=== PATIENT | female | born 1960 | race Caucasian/White ===

== ENCOUNTER 2016-07-27 09:01 | Inpatient (IN) | payer OTHER ==
[2016-07-27] MEDS ORDERED: LACTATED RINGERS 1,000 ML IV ONE ×4 (09:35→16:00)
[2016-07-27] MEDS ORDERED: ERTAPENEM 1 GM in SODIUM CHLORIDE 0.9% MINIBAG 100 ML IV ONE ×2 (10:00→17:30)
[2016-07-27] MEDS ORDERED: MIDAZOLAM 2 MG/2 ML VIAL ONE (12:29)
[2016-07-27] MEDS ORDERED: DEXAMETHASONE 4 MG/ML VIAL IVP ONE (13:30)
[2016-07-27] MEDS ORDERED: PHENYLEPHRINE 50 MG/5 ML VIAL IV ONE (13:30)
[2016-07-27] MEDS ORDERED: fentaNYL 250 MCG/5 ML VIAL IVP ONE (13:30)
[2016-07-27] MEDS ORDERED: SUCCINYLCHOLINE 200 MG/10 ML VIAL IVP ONE (13:30)
[2016-07-27] MEDS ORDERED: PROPOFOL 200 MG/20 ML VIAL IVP ONE (13:30)
[2016-07-27] MEDS ORDERED: ePHEDrine 50 MG/ML AMP IVP ONE (13:30)
[2016-07-27] MEDS ORDERED: ROPIVACAINE 0.5% PF 20 ML AMPULE EP ONE (13:30)
[2016-07-27] MEDS ORDERED: MIDAZOLAM 2 MG/2 ML VIAL IVP ONE (13:30)
[2016-07-27] MEDS ORDERED: LIDOCAINE-MPF 2% 5 ML VIAL IM ONE (13:30)
[2016-07-27] MEDS ORDERED: ONDANSETRON 4 MG/2 ML VIAL IVP ONE (13:30)
[2016-07-27] MEDS ORDERED: ROCURONIUM 50 MG/5 ML VIAL IVP ONE (13:30)
[2016-07-27] MEDS ORDERED: NEOSTIGMINE 1 MG/1 ML 10 ML MDV IVP ONE (13:30)
[2016-07-27] MEDS ORDERED: GLYCOPYRROLATE 1 MG/5 ML VIAL IVP ONE (13:30)
[2016-07-27] MEDS ORDERED: SUFENTA/BUPIV 0.4 MCG/0.0625% EPIDURAL 150 ML EP PRN (13:46)
[2016-07-27] MEDS ORDERED: NALBUPHINE 20 MG/ML AMP IVP PRN ×2 (13:46→17:13)
[2016-07-27] MEDS ORDERED: diphenhydrAMINE INJ 50 MG/ML VIAL IVP PRN (13:46)
[2016-07-27] MEDS ORDERED: ONDANSETRON 4 MG/2 ML VIAL IVP PRN ×3 (13:46→17:13)
[2016-07-27] MEDS ORDERED: SUFENTA/BUPIV 0.4 MCG/0.0625% 150 ML EP ONE (14:21)
[2016-07-27] MEDS ORDERED: MEPERIDINE 50 MG/ML SYRINGE ONE (16:50)
[2016-07-27] MEDS ORDERED: GABAPENTIN 100 MG CAPSULE PO PRN (17:13)
[2016-07-27] MEDS: NS W/20 MEQ KCL 1,000 ML IV SCH (17:49)
[2016-07-27] MEDS: FAMOTIDINE 20 MG/50 ML 50 ML IV SCH (20:31)
[2016-07-27] MEDS: SODIUM CHLORIDE FLUSH 0.9% 10 ML SYRINGE IVP SCH (20:31)
[2016-07-27] MEDS ORDERED: PHENOL THROAT SPRAY 177 ML MM PRN (20:42)
[2016-07-27] MEDS: SUFENTA/BUPIV 0.4 MCG/0.0625% EPIDURAL 150 ML EP PRN (23:48)
[2016-07-28] MEDS: KETOROLAC 15 MG/ML VIAL IVP PRN ×3 (00:13→23:22)
[2016-07-28] MEDS: diphenhydrAMINE INJ 50 MG/ML VIAL IVP PRN ×3 (00:23→20:19)
[2016-07-28] MEDS: SODIUM CHLORIDE FLUSH 0.9% 10 ML SYRINGE IVP SCH ×4 (01:35→20:26)
[2016-07-28] MEDS: NS W/20 MEQ KCL 1,000 ML IV SCH ×3 (05:39→17:20)
[2016-07-28] MEDS: SUFENTA/BUPIV 0.4 MCG/0.0625% EPIDURAL 150 ML EP PRN ×4 (05:42→22:57)
[2016-07-28] MEDS: amLODIPine 5 MG TABLET PO SCH (08:48)
[2016-07-28] MEDS: FAMOTIDINE 20 MG/50 ML 50 ML IV SCH ×2 (08:48→20:18)
[2016-07-28] MEDS ORDERED: NS W/20 MEQ KCL 1,000 ML IV SCH (10:42)
[2016-07-28] MEDS: LORazepam 2 MG/ML SYRINGE IVP PRN (11:59)
[2016-07-28] MEDS: SODIUM CHLORIDE FLUSH 0.9% 10 ML SYRINGE IVP PRN ×2 (20:19→23:23)
[2016-07-29] MEDS: diphenhydrAMINE INJ 50 MG/ML VIAL IVP PRN ×3 (04:18→20:24)
[2016-07-29] MEDS ORDERED: SUFENTA/BUPIV 0.4 MCG/0.0625% 150 ML EP ONE (04:24)
[2016-07-29] MEDS: SUFENTA/BUPIV 0.4 MCG/0.0625% EPIDURAL 150 ML EP PRN ×4 (04:32→20:20)
[2016-07-29] MEDS: NS W/20 MEQ KCL 1,000 ML IV SCH ×3 (06:59→20:39)
[2016-07-29] MEDS: SODIUM CHLORIDE FLUSH 0.9% 10 ML SYRINGE IVP SCH ×3 (07:57→20:24)
[2016-07-29] MEDS: FAMOTIDINE 20 MG/50 ML 50 ML IV SCH ×2 (07:57→20:39)
[2016-07-29] MEDS: amLODIPine 5 MG TABLET PO SCH (07:57)
[2016-07-29] MEDS: ENOXAPARIN 40 MG/0.4 ML SYRINGE SUBQ SCH (08:30)
[2016-07-30] MEDS: SUFENTA/BUPIV 0.4 MCG/0.0625% EPIDURAL 150 ML EP PRN ×5 (00:52→21:16)
[2016-07-30] MEDS: diphenhydrAMINE INJ 50 MG/ML VIAL IVP PRN ×3 (02:45→16:50)
[2016-07-30] MEDS: SODIUM CHLORIDE FLUSH 0.9% 10 ML SYRINGE IVP SCH ×3 (06:40→21:19)
[2016-07-30] MEDS: FAMOTIDINE 20 MG/50 ML 50 ML IV SCH ×2 (07:56→21:15)
[2016-07-30] MEDS: amLODIPine 5 MG TABLET PO SCH (07:56)
[2016-07-30] MEDS: ENOXAPARIN 40 MG/0.4 ML SYRINGE SUBQ SCH (09:12)
[2016-07-30] MEDS: NS W/20 MEQ KCL 1,000 ML IV SCH ×2 (14:31→22:56)
[2016-07-30] MEDS: SODIUM CHLORIDE FLUSH 0.9% 10 ML SYRINGE IVP PRN ×3 (16:51→21:18)
[2016-07-30] MEDS: KETOROLAC 15 MG/ML VIAL IVP PRN (17:17)
[2016-07-30] MEDS: LORazepam 2 MG/ML SYRINGE IVP PRN (21:15)
[2016-07-31] MEDS: SUFENTA/BUPIV 0.4 MCG/0.0625% EPIDURAL 150 ML EP PRN (02:26)
[2016-07-31] MEDS: diphenhydrAMINE INJ 50 MG/ML VIAL IVP PRN ×4 (02:35→23:39)
[2016-07-31] MEDS: SODIUM CHLORIDE FLUSH 0.9% 10 ML SYRINGE IVP SCH ×3 (06:40→18:16)
[2016-07-31] MEDS: NS W/20 MEQ KCL 1,000 ML IV SCH ×2 (06:50→17:42)
[2016-07-31] MEDS: ENOXAPARIN 40 MG/0.4 ML SYRINGE SUBQ SCH (07:14)
[2016-07-31] MEDS: FAMOTIDINE 20 MG/50 ML 50 ML IV SCH (09:16)
[2016-07-31] MEDS: amLODIPine 5 MG TABLET PO SCH (09:17)
[2016-07-31] MEDS: HYDROmorphone 1 MG/ML SYRINGE IVP PRN ×2 (10:49→18:16)
[2016-07-31] MEDS: LORazepam 2 MG/ML SYRINGE IVP PRN (10:53)
[2016-07-31] MEDS: HYDROcod/ACETAM 5/325 MG TABLET PO PRN ×3 (14:08→23:39)
[2016-07-31] MEDS: SODIUM CHLORIDE FLUSH 0.9% 10 ML SYRINGE IVP PRN (18:22)
[2016-07-31] MEDS: LORazepam 0.5 MG TABLET PO PRN (19:19)
[2016-08-01] MEDS: NS W/20 MEQ KCL 1,000 ML IV SCH (01:09)
[2016-08-01] MEDS: SODIUM CHLORIDE FLUSH 0.9% 10 ML SYRINGE IVP SCH ×2 (01:10→13:25)
[2016-08-01] MEDS: LORazepam 0.5 MG TABLET PO PRN ×2 (03:09→11:00)
[2016-08-01] MEDS: HYDROcod/ACETAM 5/325 MG TABLET PO PRN ×4 (03:09→15:30)
[2016-08-01] MEDS: diphenhydrAMINE INJ 50 MG/ML VIAL IVP PRN ×2 (05:57→15:01)
[2016-08-01] MEDS: amLODIPine 5 MG TABLET PO SCH (08:23)
== END 2016-08-01 17:21 | disposition home or self-care (01) | DRG 331 ==
PROC: 0DBM0ZZ Excision of Descending Colon, Open Approach (ICD-10-PCS; principal; 2016-07-27 10:30)
DX: Z43.3 Encounter for attention to colostomy (principal); I10 Essential (primary) hypertension; K21.9 Gastro-esophageal reflux disease without esophagitis; D12.4 Benign neoplasm of descending colon; K57.30 Diverticulosis of large intestine without perforation or abscess without bleeding; Z87.891 Personal history of nicotine dependence

== ENCOUNTER 2019-07-03 01:07 | Emergency (ER) | payer OTHER ==
[2019-07-03 01:14] VITALS: BP 165/95
[2019-07-03] MEDS ORDERED: HYDROmorphone 1 MG/ML CARPUJECT IVP STA ×2 (01:30→02:36)
[2019-07-03] MEDS ORDERED: ONDANSETRON 4 MG/2 ML VIAL IVP STA (01:30)
--- NOTE | 2019-07-03 01:32 | ED Physician Documentation ---
PD HPI UPPER EXT INJURY - Stated complaint Stated Complaint: LEFT ARM INJURY, GLF - Chief complaint Chief Complaint: Trauma Ext - History obtained from History obtained from: Patient, Family - History of Present Illness Location: Left, Arm Type of injury: Fall Where injury occurred: Home Timing - onset: How many hours ago (2) Timing - duration: Hours (2) Timing - details: Abrupt onset, Still present Improved by: Rest, Immobilization Worsened by: Moving, Palpating Associated symptoms: Swelling. No: Weakness, Numbness, Tingling Contributing factors: No: Anticoagulated Similar symptoms before: Has not had sx before Recently seen: Not recently seen - Additonal information Additional information: 59-year-old female was outside walking her dog when she tripped over some things in her yard and fell onto her left arm. She has an obvious fracture she was able to get into her car and drive herself up to the hospital favoring her left arm. She has deformity and swelling. PD PAST MEDICAL HISTORY - Past Medical History Cardiovascular: Hypertension Respiratory: None Endocrine/Autoimmune: None GI: GERD, Other CHIEF COUNSEL: None : Kidney stones, Other HEENT: None Psych: Anxiety Musculoskeletal: None Derm: None - Past Surgical History Past Surgical History: No General: Bowel surgery /CHIEF COUNSEL: Tubal ligation, Oophrectomy - Present Medications Home Medications: Ambulatory Orders Medication Instructions Recorded Confirmed Gabapentin 100 mg PO DAILY PM PRN 05/24/16 07/27/16 LORazepam [Lorazepam] 0.5 mg PO DAILY PRN 05/24/16 07/27/16 amLODIPine [Norvasc] 5 mg PO DAILY 05/24/16 07/27/16 HYDROcod/ACETAM 5/325 [[place] 5/325] 1 - 2 tab PO Q4HR PRN #40 tablet 08/01/16 Hydrocodone/Acetaminophen 1 - 2 each PO Q6H PRN #14 tablet 07/03/19 [Hydrocodon-Acetaminophen 5-325] - Allergies Allergies/Adverse Reactions: Allergies Allergy/AdvReac Type Severity Reaction Status Date / Time No Known Drug Allergies Allergy Verified 07/03/19 01:14 - Social History Does the pt smoke?: No Smoking Status: Former smoker Does the pt drink ETOH?: No Does the pt have substance abuse?: No - Immunizations Immunizations are current?: Yes PD ED PE NORMAL - Vitals Vital signs reviewed: Yes (hypertensive ) - General General: Alert and oriented X 3, No acute distress, Well developed/nourished - HEENT HEENT: Atraumatic, PERRL, EOMI - Neck Neck: Supple, no meningeal sign, No bony TTP - Respiratory Respiratory: No respiratory distress - Derm Derm: Normal color, Warm and dry, No rash - Extremities Extremities: Other (There is swelling and point tenderenss to the mid shaft of the left humerus. There is no tenderness to the elbow or the wrist joint. Any movement refers pain to the proximal humerus. The distal n/v is intact and fully functional. 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, No motor deficit, No sensory deficit, Normal speech Eye Opening: Spontaneous Motor: Obeys Commands Verbal: Oriented GCS Score: 15 - Psych Psych: Normal mood, Normal affect Results - Vitals Vitals: Vital Signs - 24 hr 07/03/19 01:12 Heart Rate 75 Respiratory 18 Rate Blood Pressure 165/95 H O2 Saturation 97 Oxygen O2 Source [With Activity] Room air O2 Source [Without Activity] Room air O2 Source Room air - Rads (name of study) L arm Radiology: Prelim report reviewed, EMP read indepedently, See rad report PD MEDICAL DECISION MAKING - ED course Complexity details: reviewed results, re-evaluated patient, considered differential, d/w patient, d/w family ED course: Previously well 59-year-old female with a fall at home has a fracture of the midshaft of the left humerus. She is placed into a coaptation splint and sling provided narcotic pain relief and we will refer her to orthopedics for follow- up. She does appear to have intact distal neurovascular components and does not appear otherwise injured. Departure - Departure Disposition: 01 Home, Self Care Clinical Impression: Closed left humeral fracture Qualifiers: Encounter type: initial encounter Humerus Location: shaft Fracture morphology: spiral Fracture alignment: displaced Qualified Code(s): S42.342A - Displaced spiral fracture of shaft of humerus, left arm, initial encounter for closed fracture Condition: Stable Instructions: Humerus Fx Follow-Up: Geovany Hill MD [Primary Care Provider] - [facility] [Provider Group] Prescriptions: Hydrocodone/Acetaminophen [Hydrocodon-Acetaminophen 5-325] 1 - 2 each PO Q6H PRN #14 tablet PRN Reason: pain
--- NOTE | 2019-07-03 01:55 | XRAY Report ---
Reason: fell injured L humerus Procedure Date: 07/03/2019 Accession Number: [id number] / [id number] Procedure: XR - Humerus LT CPT Code: Final Report FULL RESULT: EXAM: LEFT HUMERUS RADIOGRAPHY EXAM DATE: 07/03/2019 01:30 AM. CLINICAL HISTORY: Fell injured L humerus. COMPARISON: None. TECHNIQUE: 2 views. FINDINGS: Bones: There is a spiral fracture through the proximal diaphysis of the left humerus with a prominent butterfly fragment. The fracture fragments are in relative anatomic alignment. Joints: Normal. No effusions or subluxations in the visualized shoulder or elbow joints. Soft Tissues: Normal. No soft tissue swelling. IMPRESSION: 1 . Comminuted, slightly spiral fracture of the proximal diaphysis of the left humerus including a butterfly fragment. RADIA
[2019-07-03] MEDS ORDERED: HYDROcod/ACET 5/325 Prepack 4 PO STA (02:15)
== END 2019-07-03 02:49 | disposition home or self-care (01) ==
LOC: ED 01:07
DX: S42.342A Displaced spiral fracture of shaft of humerus, left arm, initial encounter for closed fracture (principal); W01.0XXA Fall on same level from slipping, tripping and stumbling without subsequent striking against object, initial encounter; Y93.K1 Activity, walking an animal; Y92.007 Garden or yard of unspecified non-institutional (private) residence as the place of occurrence of the external cause; I10 Essential (primary) hypertension; Z87.891 Personal history of nicotine dependence
CPT/HCPCS: 73060; 96374; 96376; 99281; 99284; J1170

== ENCOUNTER 2020-09-26 07:27 | Outpatient (CLI) | payer MEDICAID ==
[2020-09-26 16:04] LABS: BASOPHILS % (AUTO) 0.5 %; EOSINOPHILS # (AUTO) 0.1 10^3/uL (0.0-0.7); EOSINOPHILS % (AUTO) 1.4 %; HCT - HEMATOCRIT 46.8 % (37.0-47.0); HGB - HEMOGLOBIN 15.2 g/dL (12.0-16.0); LYMPHOCYTES # (AUTO) 1.9 10^3/uL (1.5-3.5); LYMPHOCYTES % (AUTO) 28.7 %; MEAN CORPUSCULAR HEMOGLOBIN 28.8 pg (27.0-31.0); MEAN CORPUSCULAR HGB CONC 32.5 g/dL (32.0-36.0); MEAN CORPUSCULAR VOLUME 88.6 fL (81.0-99.0); MEAN PLATELET VOLUME 10.1 fL (7.9-10.8); MONOCYTES # (AUTO) 0.8 10^3/uL (0.0-1.0); MONOCYTES % (AUTO) 11.4 %; NEUTROPHILS # (AUTO) 3.8 10^3/uL (1.5-6.6); NEUTROPHILS % (AUTO) 57.7 %; PLT - PLATELET COUNT 317 10^3/uL (130-450); RED BLOOD COUNT 5.28 10^6/uL (4.20-5.40); RED CELL DISTRIBUTION WIDTH 13.9 % (12.0-15.0); WHITE BLOOD COUNT 6.6 x10^3/uL (4.8-10.8)
[2020-09-26 16:35] LABS: THYROID STIMULATING HORMONE 2.42 uIU/mL (0.34-5.60)
[2020-09-26 16:36] LABS: ALBUMIN 4.2 g/dL (3.2-5.5); ALBUMIN/GLOBULIN RATIO 1.4 (1.0-2.2); ALKALINE PHOSPHATASE 92 IU/L (42-121); ALT ALANINE AMINOTRANSFERASE 13 IU/L (10-60); AST ASPARTATE AMINOTRANSFERASE 14 IU/L (10-42); BILIRUBIN,TOTAL 0.7 mg/dL (0.2-1.0); BUN - BLOOD UREA NITROGEN 16 mg/dL (6-20); CARBON DIOXIDE - CO2 25 mmol/L (21-32); CHLORIDE 106 mmol/L (101-111); CHOL/HDL RATIO 4.3 (<4.4); CHOLESTEROL 219 mg/dL; CREATININE 0.8 mg/dL (0.4-1.0); GFR - MDRD 73 (>89); GLUCOSE 103 mg/dL (70-100); HDL CHOLESTEROL 51 mg/dL; LDL CHOLESTEROL,CALCULATED 137 mg/dL; LDL/HDL RATIO 2.7 (<4.4); SODIUM 137 mmol/L (135-145); TOTAL PROTEIN 7.1 g/dL (6.7-8.2); TRIGLYCERIDES 154 mg/dL; VLDL CHOLESTEROL 31 mg/dL
== END 2020-09-26 07:28 | disposition home or self-care (01) ==
LOC: LAB.S 07:27
PROVIDERS: ATTEND Registered Nurse
DX: Z13.228 Encounter for screening for other metabolic disorders (principal); Z13.29 Encounter for screening for other suspected endocrine disorder; Z13.0 Encounter for screening for diseases of the blood and blood-forming organs and certain disorders involving the immune mechanism
CPT/HCPCS: 36415; 80053; 80061; 83721; 84443; 85025

== ENCOUNTER 2020-10-26 08:41 | Outpatient (CLI) | payer MEDICAID ==
--- NOTE | 2020-11-01 10:09 | Mammography Report ---
BILATERAL DIGITAL SCREENING MAMMOGRAM 3D/2D WITH EXAGGERATED CC: 10/26/2020 CLINICAL: Family history of breast cancer. Comparison is made to exam dated: 08/24/2015 mammogram - [facility]. The tissue of both breasts is predominantly fatty. No significant masses, calcifications, or other findings are seen in either breast. There has been no significant interval change. IMPRESSION: NEGATIVE There is no mammographic evidence of malignancy. A 1 year screening mammogram is recommended. This exam was interpreted at Station ID: [id number]. NOTE: For mammograms, a report in lay terms will be sent to the patient. Approximately 15% of breast malignancies will not be visualized mammographically. In the management of a palpable breast mass, a negative mammogram must not discourage biopsy of a clinically suspicious lesion. Electronically Signed By: Christiano Jaeger acr/penrad:11/01/2020 08:53:01 ACR BI-RADS Category 1: Negative 3341F PARENCHYMAL PATTERN: (F) - The breast(s) demonstrate(s) diffuse fatty replacement. BI-RADS CATEGORY: (1) - 1 RECOMMENDATION: (ANNUAL) - Recommend routine annual screening mammography. [id number] 1 year screening LATERALITY: (B)
== END 2020-10-26 08:42 | disposition home or self-care (01) ==
LOC: DI.S 08:41
PROVIDERS: ATTEND Registered Nurse
DX: Z12.31 Encounter for screening mammogram for malignant neoplasm of breast (principal)

== ENCOUNTER 2021-05-12 07:23 | Outpatient (CLI) | payer MEDICAID ==
[2021-05-12 15:30] LABS: CHOL/HDL RATIO 4.2 (<4.4); CHOLESTEROL 208 mg/dL; HDL CHOLESTEROL 50 mg/dL; LDL CHOLESTEROL,CALCULATED 136 mg/dL; LDL/HDL RATIO 2.7 (<4.4); TRIGLYCERIDES 111 mg/dL; VLDL CHOLESTEROL 22 mg/dL
== END 2021-05-12 07:24 | disposition home or self-care (01) ==
LOC: LAB.S 07:23
PROVIDERS: ATTEND Internal Medicine
DX: Z13.220 Encounter for screening for lipoid disorders (principal)
CPT/HCPCS: 36415; 80061; 83721

== ENCOUNTER 2022-08-10 07:12 | Outpatient (CLI) | payer MEDICAID ==
[2022-08-10 16:08] LABS: THYROID STIMULATING HORMONE 1.96 uIU/mL (0.34-5.60)
[2022-08-10 16:14] LABS: ALBUMIN/GLOBULIN RATIO 1.3 (1.0-2.2); ALKALINE PHOSPHATASE 78 IU/L (42-121); ALT ALANINE AMINOTRANSFERASE 16 IU/L (10-60); AST ASPARTATE AMINOTRANSFERASE 15 IU/L (10-42); BILIRUBIN,TOTAL 0.6 mg/dL (0.2-1.0); BUN - BLOOD UREA NITROGEN 19 mg/dL (6-20); CALCIUM 9.1 mg/dL (8.5-10.3); CARBON DIOXIDE - CO2 24 mmol/L (21-32); CHLORIDE 107 mmol/L (101-111); CHOL/HDL RATIO 4.3 (<4.4); CHOLESTEROL 221 mg/dL; CREATININE 0.8 mg/dL (0.4-1.0); GFR - MDRD 72 (>89); GLUCOSE 108 mg/dL (70-100); HDL CHOLESTEROL 52 mg/dL; LDL CHOLESTEROL,CALCULATED 145 mg/dL; LDL/HDL RATIO 2.8 (<4.4); SODIUM 140 mmol/L (135-145); TRIGLYCERIDES 122 mg/dL; VLDL CHOLESTEROL 24 mg/dL
== END 2022-08-10 07:13 | disposition home or self-care (01) ==
LOC: LAB.S 07:12
PROVIDERS: ATTEND Internal Medicine
DX: I10 Essential (primary) hypertension (principal); R61 Generalized hyperhidrosis; K43.9 Ventral hernia without obstruction or gangrene; F41.9 Anxiety disorder, unspecified
CPT/HCPCS: 36415; 80053; 80061; 83721; 84443

== ENCOUNTER 2023-02-04 08:51 | Outpatient (CLI) | payer MEDICAID ==
[2023-02-04 15:24] LABS: THYROID STIMULATING HORMONE 1.13 uIU/mL (0.34-5.60)
[2023-02-04 15:30] LABS: FERRITIN 11.5 ng/mL (11.0-306.8)
== END 2023-02-04 08:52 | disposition home or self-care (01) ==
LOC: LAB.S 08:51
PROVIDERS: ATTEND Internal Medicine
DX: F51.04 Psychophysiologic insomnia (principal); Z13.0 Encounter for screening for diseases of the blood and blood-forming organs and certain disorders involving the immune mechanism; F41.9 Anxiety disorder, unspecified
CPT/HCPCS: 36415; 82728; 84443

== ENCOUNTER 2023-08-07 09:15 | Outpatient (CLI) | payer MEDICARE ==
[2023-08-07 09:42] LABS: BASOPHILS % (AUTO) 0.5 %; EOSINOPHILS # (AUTO) 0.1 10^3/uL (0.0-0.7); EOSINOPHILS % (AUTO) 1.4 %; HCT - HEMATOCRIT 40.2 % (37.0-47.0); HGB - HEMOGLOBIN 12.9 g/dL (12.0-16.0); LYMPHOCYTES # (AUTO) 3.4 10^3/uL (1.5-3.5); MEAN CORPUSCULAR HEMOGLOBIN 27.9 pg (27.0-31.0); MEAN CORPUSCULAR HGB CONC 32.1 g/dL (32.0-36.0); MEAN PLATELET VOLUME 9.4 fL (7.9-10.8); MONOCYTES # (AUTO) 0.9 10^3/uL (0.0-1.0); MONOCYTES % (AUTO) 11.7 %; NEUTROPHILS # (AUTO) 3.6 10^3/uL (1.5-6.6); NEUTROPHILS % (AUTO) 44.2 %; PLT - PLATELET COUNT 322 10^3/uL (130-450); RED BLOOD COUNT 4.62 10^6/uL (4.20-5.40); RED CELL DISTRIBUTION WIDTH 14.5 % (12.0-15.0); WHITE BLOOD COUNT 8.1 x10^3/uL (4.8-10.8)
[2023-08-07 09:59] LABS: ALBUMIN/GLOBULIN RATIO 1.8 (1.0-2.2); BILIRUBIN,TOTAL 0.4 mg/dL (0.2-1.0); CALCIUM 9.2 mg/dL (8.5-10.3); CREATININE 0.7 mg/dL (0.6-1.3); POTASSIUM 4.2 mmol/L (3.5-4.5); TOTAL PROTEIN 6.2 g/dL (6.4-8.9)
== END 2023-08-07 09:16 | disposition home or self-care (01) ==
LOC: LAB 09:15
PROVIDERS: ATTEND Internal Medicine
DX: I10 Essential (primary) hypertension (principal)
CPT/HCPCS: 36415; 80053; 85025

== ENCOUNTER 2023-09-10 07:53 | Outpatient (CLI) | payer MEDICARE ==
[2023-09-10] MEDS ORDERED: DIATRIZOATE MEGLU/DIATRIZO SOD 30 ML BOTTLE PO ONE (07:59)
[2023-09-10] MEDS ORDERED: iohexoL-300 100 ML VIAL ONE (07:59)
[2023-09-10 08:28] LABS: CREATININE 0.8 mg/dL (0.6-1.3)
[2023-09-10] MEDS: iohexoL-300 100 ML VIAL IVP ONE (09:56)
[2023-09-10] MEDS: DIATRIZOATE MEGLU/DIATRIZO SOD 30 ML BOTTLE PO ONE (09:57)
--- NOTE | 2023-09-11 10:11 | CT Report ---
PROCEDURE: Abdomen/Pelvis W INDICATIONS: HERNIA CONTRAST: Omni 300 100ml TECHNIQUE: After the administration of intravenous contrast, a CT scan of the abdomen and pelvis was performed. Images were recorded and evaluated at appropriate window settings. Reformats: coronal and sagittal. F or radiation dose reduction, the following was used: automated exposure control, adjustment of mA and /or kV according to patient size. COMPARISON: CT abdomen and pelvis, 03/17/2022. FINDINGS: Image quality: Diagnostic. Lower chest: Unremarkable. Liver: No solid mass. Multiple hepatic hypodensities, most likely cysts. Gallbladder and biliary tree: Normal gallbladder. No biliary dilation. Spleen: No splenomegaly. Pancreas: No pancreatic ductal dilation. Adrenals: There is a 2.2 cm right adrenal nodule, unchanged in size, likely a benign adrenal adenoma. There is 1.1 cm left adrenal nodule superimposed on adrenal hyperplasia. Kidneys and ureters: No hydronephrosis. No renal cystic lesion which requires follow up. No solid mas s. Stomach, bowel and peritoneum: No bowel distension. No pathologic free fluid. Diverticulosis without acute diverticulitis. Normal appendix. Lymph nodes: No central or retroperitoneal adenopathy. Vessels: No infrarenal aortic aneurysm. PELVIS Reproductive organs: Question a 1.5 cm nodule right posterior to the uterus, probably a exophytic jeromy rine leiomyoma. The left ovary is not visualized. Bladder: No abnormal wall thickening, accounting for underdistention. Pelvic lymph nodes: No pelvic adenopathy by size criteria. Bones: No aggressive osseous abnormality. Moderate spondylitic changes at L5-S1. Other: Multiple fat-containing ventral hernias are present. -There is a small fat-containing ventral hernia 4.2 cm above the umbilicus, with the hernia neck lauro uring 3.1 x 1.8 cm. -There is a small fat-containing periumbilical ventral hernia, with the hernia neck measuring 3.1 x 2 .6 cm transverse. -There is a tiny fat-containing ventral hernia below the umbilicus with the hernia neck 0.7 x 1.0 cm. No inguinal hernias. IMPRESSION: 1. There are 3 fat containing ventral hernias at midline as described. 2. Diverticulosis without acute diverticulitis. 3. Bilateral adrenal nodules and left adrenal hyperplasia 4. Multiple low-density nodules in liver are most likely hepatic cysts. 5. A 1.5 cm exophytic uterine fibroid. A differential diagnosis is a nodule associated with the right ovary. Consider pelvic ultrasound for further evaluation. Reviewed by: Golden Ryan MD on 09/11/2023 10:[address] [facility] Approved by: Golden Ryan MD on 09/11/2023 10:[address] [facility] Station ID: [id number]
== END 2023-09-10 07:54 | disposition home or self-care (01) ==
LOC: LAB 07:53
PROVIDERS: ATTEND Internal Medicine
DX: K43.2 Incisional hernia without obstruction or gangrene (principal); K43.9 Ventral hernia without obstruction or gangrene; K57.90 Diverticulosis of intestine, part unspecified, without perforation or abscess without bleeding; E27.8 Other specified disorders of adrenal gland; R93.2 Abnormal findings on diagnostic imaging of liver and biliary tract; R93.5 Abnormal findings on diagnostic imaging of other abdominal regions, including retroperitoneum
CPT/HCPCS: 36415; 74177; 82565; Q9963; Q9967

== ENCOUNTER 2023-10-30 08:57 | Outpatient (CLI) | payer MEDICARE | END 2023-10-30 08:58 | disposition home or self-care (01) | LOC: DI 08:57 | PROVIDERS: ATTEND Internal Medicine | DX: R00.0 Tachycardia, unspecified (principal); I10 Essential (primary) hypertension | CPT/HCPCS: 93307 ==

== ENCOUNTER 2024-03-13 07:21 | Outpatient (CLI) | payer MEDICARE ==
[2024-03-13 14:49] LABS: BASOPHILS # (AUTO) 0.1 10^3/uL (0.0-0.1); BASOPHILS % (AUTO) 0.8 %; EOSINOPHILS # (AUTO) 0.1 10^3/uL (0.0-0.7); EOSINOPHILS % (AUTO) 1.6 %; HCT - HEMATOCRIT 45.5 % (37.0-47.0); HGB - HEMOGLOBIN 14.3 g/dL (12.0-16.0); LYMPHOCYTES # (AUTO) 2.2 10^3/uL (1.5-3.5); LYMPHOCYTES % (AUTO) 34.3 %; MEAN CORPUSCULAR HGB CONC 31.4 g/dL (32.0-36.0); MONOCYTES # (AUTO) 0.8 10^3/uL (0.0-1.0); NEUTROPHILS # (AUTO) 3.3 10^3/uL (1.5-6.6); PLT - PLATELET COUNT 365 10^3/uL (130-450); RED BLOOD COUNT 5.11 10^6/uL (4.20-5.40); RED CELL DISTRIBUTION WIDTH 15.3 % (12.0-15.0); WHITE BLOOD COUNT 6.4 x10^3/uL (4.8-10.8)
[2024-03-13 16:40] LABS: % IRON SATURATION 22 % (20-50); ALBUMIN 4.1 g/dL (3.2-5.5); ALBUMIN/GLOBULIN RATIO 1.4 (1.0-2.2); ALKALINE PHOSPHATASE 69 IU/L (42-121); ALT ALANINE AMINOTRANSFERASE 9 IU/L (10-60); AST ASPARTATE AMINOTRANSFERASE 11 IU/L (10-42); BILIRUBIN,TOTAL 0.5 mg/dL (0.2-1.0); BUN - BLOOD UREA NITROGEN 12 mg/dL (6-20); CALCIUM 9.3 mg/dL (8.5-10.3); CARBON DIOXIDE - CO2 26 mmol/L (21-32); CHLORIDE 109 mmol/L (101-111); CHOL/HDL RATIO 4.1 (<4.4); CHOLESTEROL 185 mg/dL; CREATININE 0.7 mg/dL (0.6-1.3); GFR - MDRD 84 (>89); GLUCOSE 100 mg/dL (74-104); HDL CHOLESTEROL 45 mg/dL; IRON 77 ug/dL (50-212); LDL CHOLESTEROL,CALCULATED 110 mg/dL; LDL/HDL RATIO 2.4 (<4.4); POTASSIUM 4.3 mmol/L (3.5-4.5); SODIUM 140 mmol/L (135-145); TOTAL IRON BINDING CAPACITY 351 ug/dL (250-450); TRANSFERRIN 251 mg/dL (203-362); TRIGLYCERIDES 150 mg/dL; VLDL CHOLESTEROL 30 mg/dL
[2024-03-13 16:49] LABS: THYROID STIMULATING HORMONE 1.42 uIU/mL (0.34-5.60)
[2024-03-13 16:53] LABS: FERRITIN 27.7 ng/mL (11.0-306.8)
== END 2024-03-13 07:22 | disposition home or self-care (01) ==
LOC: LAB.S 07:21
PROVIDERS: ATTEND Internal Medicine
DX: I10 Essential (primary) hypertension (principal); Z13.228 Encounter for screening for other metabolic disorders; F41.9 Anxiety disorder, unspecified; R61 Generalized hyperhidrosis; R00.0 Tachycardia, unspecified; R79.89 Other specified abnormal findings of blood chemistry
CPT/HCPCS: 36415; 80053; 80061; 82728; 83540; 83721; 83835; 84443; 84466; 85025